=== PATIENT | male | born 1965 | race Caucasian/White ===

== ENCOUNTER 2018-09-27 16:28 | Outpatient (CLI) | payer BC ==
[2018-09-27 17:35] LABS: CREATININE 0.84 mg/dL (0.55-1.30)
== END 2018-09-27 20:53 | disposition home or self-care (01) ==
LOC: SLB 16:28
PROVIDERS: ATTEND Otolaryngology
DX: R13.10 Dysphagia, unspecified (principal)
CPT/HCPCS: 36415; 82565-TC; 84520-TC

== ENCOUNTER 2018-10-07 11:57 | Outpatient (CLI) | payer BC ==
[2018-10-07] MEDS ORDERED: BARIUM SULFATE 135 ML SUSP.RECON (E-Z-HD) PO ONE (12:35)
[2018-10-07] MEDS ORDERED: IOHEXOL 100 ML IV ONE (13:08)
== END 2018-10-07 21:19 | disposition home or self-care (01) ==
LOC: SCT 11:57 → MERGE 11:57 → SCT 21:19
PROVIDERS: ATTEND Otolaryngology
DX: R13.10 Dysphagia, unspecified (principal)
CPT/HCPCS: 70491; 74230; 92611; Q9967